=== PATIENT | male | born 1985 | race Caucasian/White ===

== ENCOUNTER 2017-07-24 08:41 | Emergency (ER) | payer MEDICAID ==
[~2017-07-24] VITALS: Ht 167.6 cm; Wt 136.2 kg
[2017-07-24 08:53] VITALS: BP 111/61
== END 2017-07-24 09:48 | disposition home or self-care (01) ==
LOC: ER 08:41
DX: E11.9 Type 2 diabetes mellitus without complications (principal); I10 Essential (primary) hypertension; R62.50 Unspecified lack of expected normal physiological development in childhood; Z76.0 Encounter for issue of repeat prescription

== ENCOUNTER 2018-07-31 11:43 | Emergency (ER) | payer MEDICAID ==
[~2018-07-31] VITALS: Ht 165.1 cm; Wt 111.1 kg
[2018-07-31 11:55] VITALS: BP 110/78
== END 2018-07-31 12:18 | disposition home or self-care (01) ==
LOC: ER 11:43 → EDBD 11:43 → ER 12:18
DX: S00.81XA Abrasion of other part of head, initial encounter (principal); E11.9 Type 2 diabetes mellitus without complications; I10 Essential (primary) hypertension; Z91.048 Other nonmedicinal substance allergy status; W22.01XA Walked into wall, initial encounter; Y93.89 Activity, other specified; Y99.8 Other external cause status; Y92.89 Other specified places as the place of occurrence of the external cause